=== PATIENT | female | born 1990 | race Caucasian/White ===

== ENCOUNTER 2017-11-27 20:42 | Emergency (ER) | payer OTHER ==
[~2017-11-27] VITALS: Ht 157.5 cm; Wt 126.7 kg
[~2017-11-27 20:42] MED LIST: APRISO0.375 GM PO; ATIVAN0.5 MG PO; BENTYL10 MG PO; Benadryl PO; CAMILA0.35 MG PO; CANASA1000 MG PR; CARAFATE100 MG/ML PO; CETIRIZINE HCL10 M2 PO; CLARINEX5 MG PO; Claritin,Alavart PO; DEXILANT30 MG PO; FLEXERIL10 MG PO; LAMICTAL25 MG PO; MOTRIN600 MG PO; PREDNISONE20 MG PO; PROMETHAZINE HC25 M1 PO; PROTONIX40 MG PO; SINGULAIR10 MG PO; THERAGRAN1 TABLET PO; TRAMADOL HCL50 MG PO; TYLENOL EXTRA500 MG PO; ULTRAM ER100 MG PO; Vicodin,Lortab 5/500 PO; ZANTAC150 MG PO; ZOFRAN ODT4 MG PO; ZOFRAN ODT8 MG PO; ZOFRAN8 MG PO; ZyrTEC PO
[2017-11-27] MEDS ORDERED: INDOCIN50 MG PO (22:48)
[2017-11-27] MEDS ORDERED: ULTRACET1 TABLET PO (22:49)
[2017-11-27 23:50] VITALS: BP 150/87
== END 2017-11-27 23:50 | disposition home or self-care (01) ==
LOC: RME 20:42 → EME 20:42 → RME 23:50
DX: G56.03 Carpal tunnel syndrome, bilateral upper limbs (principal); Z88.8 Allergy status to other drugs, medicaments and biological substances

== ENCOUNTER 2018-05-30 18:35 | Emergency (ER) | payer OTHER ==
[~2018-05-30] VITALS: Ht 157.5 cm; Wt 118.0 kg
[~2018-05-30 18:35] MED LIST changes: +INDOCIN50 MG PO; +ULTRACET1 TABLET PO
[2018-05-30] MEDS ORDERED: MOTRIN800 MG PO (18:56)
[2018-05-30 19:16] VITALS: BP 115/73
[2018-05-30] MEDS ORDERED: FLEXERIL10 MG PO (19:21)
== END 2018-05-30 19:23 | disposition home or self-care (01) ==
LOC: EME 18:35
DX: S16.1XXA Strain of muscle, fascia and tendon at neck level, initial encounter (principal); S39.012A Strain of muscle, fascia and tendon of lower back, initial encounter; V44.5XXA Car driver injured in collision with heavy transport vehicle or bus in traffic accident, initial encounter; Y92.414 Local residential or business street as the place of occurrence of the external cause; J30.2 Other seasonal allergic rhinitis; Z88.1 Allergy status to other antibiotic agents; Z91.030 Bee allergy status
CPT/HCPCS: 99281; 99283